=== PATIENT | female | born 2000 ===

== ENCOUNTER 2023-06-11 14:59 | Outpatient (CLI) | payer OTHER | END 2023-06-11 16:45 | disposition home or self-care (01) | LOC: PRENATAL 14:59 | PROVIDERS: ATTEND Obstetrics & Gynecology Maternal & Fetal Medicine | DX: O36.80X0 Pregnancy with inconclusive fetal viability, not applicable or unspecified (principal); Z36.9 Encounter for antenatal screening, unspecified; Z3A.12 12 weeks gestation of pregnancy ==

== ENCOUNTER 2023-10-09 14:09 | Outpatient (CLI) | payer OTHER | END 2023-10-09 14:10 | disposition home or self-care (01) | LOC: PRENATAL 14:09 | PROVIDERS: ATTEND Obstetrics & Gynecology Maternal & Fetal Medicine | DX: O26.849 Uterine size-date discrepancy, unspecified trimester (principal); O43.90 Unspecified placental disorder, unspecified trimester; Z3A.29 29 weeks gestation of pregnancy ==

== ENCOUNTER 2023-11-12 14:12 | Outpatient (CLI) | payer OTHER ==
[~2023-11-12 14:12] MED LIST: ALCOHOL PADS1 EACH TOP; GLUCOMETERDEVICE {1, null}; GLUCOSE TEST S1 EACH SUBCUTANEO; LANCETS1 EAC2 {1, null}
== END 2023-11-12 14:13 | disposition home or self-care (01) ==
LOC: PRENATAL 14:12
PROVIDERS: ATTEND Obstetrics & Gynecology Maternal & Fetal Medicine
DX: O26.849 Uterine size-date discrepancy, unspecified trimester (principal); O43.90 Unspecified placental disorder, unspecified trimester; O36.8199 Decreased fetal movements, unspecified trimester, other fetus; Z3A.34 34 weeks gestation of pregnancy

== ENCOUNTER 2023-12-10 13:43 | Inpatient (IN) | payer OTHER ==
[~2023-12-10] VITALS: Ht 170.2 cm; Wt 83.5 kg
[2023-12-22 06:15] LABS: HEMATOCRIT 34.7 % (36.0-45.00); HEMOGLOBIN 11.8 g/dL (12.0-15.00); MEAN CORPUSCULAR HGB CONC 34.1 g/dl (32.0-36.0); PLATELET COUNT 176 K/uL (150-450); RED BLOOD COUNT 3.95 M/uL (4.00-6.00); RED CELL DISTRIBUTION WIDTH 15.5 % (11.5-14.5)
[2023-12-22 06:29] LABS: PH,URINE 7.5 (5.0-8.0); URINE APPEARANCE Clear; URINE BILIRRUBIN Negative (NEGATIVE); URINE BLOOD Negative; URINE COLOR Yellow; URINE GLUCOSE Negative (NEGATIVE); URINE LEUKOCYTE Large; URINE NITRATE Negative; URINE PROTEIN Negative (NEGATIVE); URINE UROBILINOGEN 0.2 E.U./dl
[2023-12-22] MEDS ORDERED: PRENATABS RX T1 EACH PO (06:29)
[2023-12-22 06:34] LABS: URINE BACTERIA 467.3 uL (0.0-1933); URINE EPITHELIAL CELLS 11.2 uL (0.0-38.8); URINE RBC 20.1 uL (0.0-20.8); URINE WBC 11.5 uL (0.0-23.2)
[2023-12-22 07:02] LABS: ALBUMIN 3.1 gm/dL (3.4-5.0); BILIRUBIN TOTAL 0.37 mg/dL (0.3-1.2); CALCIUM 9.2 mg/dL (8.5-10.1); CREATININE SERUM 0.55 mg/dL (0.55-1.02); GFR 136.97; GLOBULINA 3.9 G/DL (2.4-3.5); POTASSIUM 3.87 mEq/L (3.5-5.1)
[2023-12-22 07:11] LABS: INR < 0.93; PARTIAL THROMBOPLASTIN TIME 29.2 SECONDS (22.0-34.0); PROTHROMBIN TIME 9.6 SECONDS (9.0-11.5)
[2023-12-22] MEDS ORDERED: MISOPROSTOL 50 MCG TABLET ONE (07:14)
[2023-12-22] MEDS ORDERED: MISOPROSTOL 50 MCG TABLET VAG ONE (07:45)
[2023-12-22] MEDS ORDERED: PROMETHAZINE HCL 25 MG/ML AMPUL ONE (11:24)
[2023-12-22] MEDS ORDERED: MEPERIDINE HCL/PF 25 MG/ML VIAL IV ONE (11:45)
[2023-12-22] MEDS ORDERED: PROMETHAZINE HCL 25 MG/ML AMPUL IV ONE (11:45)
[2023-12-22] MEDS ORDERED: ERYTHROMYCIN BASE 1 GM TUBE OP ONE (15:37)
[2023-12-22] MEDS ORDERED: CHLORHEXIDINE GLUCONATE 120 ML BOTTLE TOP ONE (15:37)
[2023-12-22] MEDS ORDERED: OXYTOCIN 500 ML IV ONE (15:45)
[2023-12-22] MEDS ORDERED: LIDOCAINE HCL 1% 200MG/20ML VIAL IJ ONE (17:28)
[2023-12-22] MEDS ORDERED: ERYTHROMYCIN BASE 1 GM TUBE OP SCH (18:15)
[2023-12-22] MEDS ORDERED: LIDOCAINE HCL 1% 200MG/20ML VIAL IJ SCH (18:15)
[2023-12-22] MEDS ORDERED: CHLORHEXIDINE GLUCONATE 120 ML BOTTLE TOP SCH (18:15)
[2023-12-22] MEDS ORDERED: IBUprofen 400 MG TABLET PO PRN (18:30)
[2023-12-23 07:11] LABS: MEAN CELL VOLUME 88.9 fL (80.00-100.00); MEAN CORPUSCULAR HGB CONC 34.6 g/dl (32.0-36.0); PLATELET COUNT 159 K/uL (150-450); RED CELL DISTRIBUTION WIDTH 15.4 % (11.5-14.5)
[2023-12-23 07:23] LABS: HEMATOCRIT 22.3 % (36.0-45.00); HEMOGLOBIN 7.7 g/dL (12.0-15.00); MEAN CORPUSCULAR HEMOGLOBIN 30.8 pg (27.00-32.0)
[2023-12-23] MEDS ORDERED: DOCUSATE SODIUM 100MG CAP PO SCH (09:00)
[2023-12-24 04:21] LABS: HEMATOCRIT 27.8 % (36.0-45.00); MEAN CELL VOLUME 88.1 fL (80.00-100.00); MEAN CORPUSCULAR HEMOGLOBIN 29.5 pg (27.00-32.0); MEAN CORPUSCULAR HGB CONC 33.4 g/dl (32.0-36.0); PLATELET COUNT 153 K/uL (150-450); RED BLOOD COUNT 3.15 M/uL (4.00-6.00); RED CELL DISTRIBUTION WIDTH 15.6 % (11.5-14.5)
[2023-12-24 04:22] LABS: HEMOGLOBIN 9.3 g/dL (12.0-15.00)
== END 2023-12-24 17:08 | disposition home or self-care (01) | DRG 768 ==
LOC: LDR 12-22 04:59 → OB/GYN 12-22 14:00
PROVIDERS: ADMIT Obstetrics & Gynecology; ATTEND Obstetrics & Gynecology
PROC: 10E0XZZ Delivery of Products of Conception, External Approach (ICD-10-PCS; principal; 2023-12-22)
PROC: 0DQR0ZZ Repair Anal Sphincter, Open Approach (ICD-10-PCS; 2023-12-22)
PROC: 0W8NXZZ Division of Female Perineum, External Approach (ICD-10-PCS; 2023-12-22)
PROC: 4A1HXCZ Monitoring of Products of Conception, Cardiac Rate, External Approach (ICD-10-PCS; 2023-12-22)
DX: O70.21 Third degree perineal laceration during delivery, IIIa (principal); Z37.0 Single live birth; Z3A.39 39 weeks gestation of pregnancy; Z20.822 Contact with and (suspected) exposure to COVID-19

== ENCOUNTER 2023-12-18 07:25 | Outpatient (CLI) | payer OTHER | END 2023-12-18 10:28 | disposition home or self-care (01) | LOC: NST 07:25 | PROVIDERS: ATTEND Obstetrics & Gynecology | DX: Z34.83 Encounter for supervision of other normal pregnancy, third trimester (principal) ==